=== PATIENT | female | born 1975 | race Caucasian/White ===

== ENCOUNTER 2016-08-22 18:51 | Emergency (ER) | payer BC, OTHER ==
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
[2016-08-22 19:27] LABS: APPEARANCE,URINE SLIGHTLY-CLOUDY; BILIRUBIN,URINE NEGATIVE (NEGATIVE); CALCIUM OXALATE CRYSTALS,URINE FEW /HPF; GLUCOSE, URINE NEGATIVE (NEGATIVE); KETONES,URINE NEGATIVE (NEGATIVE); LEUKOCYTE ESTERASE,URINE NEGATIVE (NEGATIVE); NITRITE,URINE NEGATIVE (NEGATIVE); PROTEIN,URINE 30 mg/dL (NEGATIVE); URINE SPECIFIC GRAVITY 1.013; UROBILINOGEN,URINE NEGATIVE mg/dL (<2.0)
[2016-08-22] MEDS ORDERED: ONDANSETRON HCL INJ/PF 4 MG/2 ML SDV IV ONE (19:49)
[2016-08-22] MEDS ORDERED: MORPHINE SULFATE 10 MG/ML INJ IV ONE (19:49)
[2016-08-22] MEDS ORDERED: HYDROMORPHONE HCL INJ/PF 2 MG/ML AMPULE IV ONE (20:38)
[2016-08-22] MEDS ORDERED: HYDROCODONE/ACETAMINOPHEN 5-325 MG 6 TAB/DSPK PO PRN (20:39)
[2016-08-22 21:32] VITALS: BP 148/82
== END 2016-08-22 21:35 | disposition home or self-care (01) ==
LOC: ER 18:51
PROC: 2W3SX1Z Immobilization of Right Foot using Splint (ICD-10-PCS; principal; 2016-08-22)
DX: S30.1XXA Contusion of abdominal wall, initial encounter (principal); S82.301A Unspecified fracture of lower end of right tibia, initial encounter for closed fracture; R10.9 Unspecified abdominal pain; F17.200 Nicotine dependence, unspecified, uncomplicated; V89.2XXA Person injured in unspecified motor-vehicle accident, traffic, initial encounter
CPT/HCPCS: 99284; 96374; 96375; 81001; 73610; 73110; 74177; 29515; J2270; J1170; J2405

== ENCOUNTER 2016-09-26 10:42 | Emergency (ER) | payer BC ==
--- NOTE | 2016-09-26 11:03 | ER Document Report ---
ED Medical Screen (RME) - General Chief Complaint: Urinary Problem Stated Complaint: BACK PAIN/URINARY ISSUES Time seen by provider: 11:02 Mode of Arrival: Ambulatory Information source: Patient Notes: This is a 41-year-old female with a history of low back surgery in the past ( Dr. Coon with [facility] that is followed by a pain specialist for her back pain. The patient presents with difficulty voiding in the setting of worsening back pain. Patient has had cauda equina in the past and they're concerned about this today. Patient's symptoms of urinary dysfunction started 3 days ago TRAVEL OUTSIDE OF THE [place] IN LAST 30 DAYS: No - Related Data Allergies/Adverse Reactions: No Known Allergies Allergy (Verified 09/26/16 10:44) Past Medical History - Past Medical History Cardiac Medical History: Reports: Hx Hypercholesterolemia, Hx Hypertension Endocrine Medical History: Reports: Hx Diabetes Mellitus Type 2 Renal/ Medical History: Reports: Hx Kidney Stones. Denies: Hx Peritoneal Dialysis Past Surgical History: Reports: Hx Breast Surgery - reduction, Hx Kidney (Renal Surgery) - kidney stones, Hx Oral Surgery - wisdom, Hx Orthopedic Surgery - back - Immunizations Hx Diphtheria, Pertussis, Tetanus Vaccination: No Physical Exam - Vital signs Vitals: Temp Pulse Resp BP Pulse Ox 98.4 F 94 18 112/61 98 09/26/16 10:48 09/26/16 10:48 09/26/16 10:48 09/26/16 10:48 09/26/16 10:48 Course - Vital Signs Vital signs: Temp Pulse Resp BP Pulse Ox 98.4 F 94 18 112/61 98 09/26/16 10:48 09/26/16 10:48 09/26/16 10:48 09/26/16 10:48 09/26/16 10:48
[2016-09-26] MEDS ORDERED: OXYCODONE-ACETAMINOPHEN 5-325 MG TABLET PO ONE (11:09)
[2016-09-26 11:30] LABS: ABSOLUTE BASOPHILS # (AUTO) 0.1 10^3/uL (0.0-0.2); ABSOLUTE LYMPHOCYTES (AUTO) 3.8 10^3/uL (0.5-4.7); ABSOLUTE MONOCYTES (AUTO) 0.7 10^3/uL (0.1-1.4); ABSOLUTE NEUT (AUTO) 6.7 10^3/uL (1.7-8.2); BASOPHILS % (AUTO) 0.7 % (0-2); EOSINOPHILS % (AUTO) 0.2 % (0-6); HEMATOCRIT 38.6 % (36.0-47.0); HEMOGLOBIN 12.7 g/dL (12.0-15.5); HGB HCT DIFFERENCE -0.5; LYMPHOCYTES % (AUTO) 33.8 % (13-45); MEAN CORPUSCULAR HEMOGLOBIN 26.5 pg (27.0-33.4); MEAN CORPUSCULAR VOLUME 80 fl (80-97); MONOCYTES % (AUTO) 6.4 % (3-13); RED BLOOD COUNT 4.81 10^6/uL (3.72-5.28); SEGMENTED NEUTROPHILS % (AUTO) 58.9 % (42-78); WHITE BLOOD COUNT 11.4 10^3/uL (4.0-10.5)
[2016-09-26 11:35] LABS: PROTHROMBIN TIME 13.1 SEC (11.4-15.4)
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
[2016-09-26 12:58] LABS: ALANINE AMINOTRANSFERASE 38 U/L (9-52); ALBUMIN 3.9 g/dL (3.5-5.0); ALKALINE PHOSPHATASE 75 U/L (38-126); ANION GAP 11 (5-19); ASPARTATE AMINO TRANSFERASE 37 U/L (14-36); BILIRUBIN,DIRECT 0.4 mg/dL (0.0-0.4); BILIRUBIN,TOTAL 0.5 mg/dL (0.2-1.3); BLOOD UREA NITROGEN 16 mg/dL (7-20); CALCIUM 10.3 mg/dL (8.4-10.2); CARBON DIOXIDE 25 mmol/L (22-30); CHLORIDE 106 mmol/L (98-107); GLUCOSE 46 mg/dL (75-110); POTASSIUM 5.2 mmol/L (3.6-5.0); SODIUM 142.3 mmol/L (137-145)
[2016-09-26 14:37] LABS: AMORPHOUS SEDIMENT,URINE TRACE /HPF; APPEARANCE,URINE TURBID; BILIRUBIN,URINE NEGATIVE (NEGATIVE); CALCIUM OXALATE CRYSTALS,URINE MANY /HPF; GLUCOSE, URINE NEGATIVE (NEGATIVE); KETONES,URINE NEGATIVE (NEGATIVE); LEUKOCYTE ESTERASE,URINE NEGATIVE (NEGATIVE); NITRITE,URINE NEGATIVE (NEGATIVE); PROTEIN,URINE NEGATIVE (NEGATIVE); URINE SPECIFIC GRAVITY 1.025; UROBILINOGEN,URINE NEGATIVE mg/dL (<2.0)
[2016-09-26 15:46] VITALS: BP 121/67
== END 2016-09-26 15:55 | disposition home or self-care (01) ==
LOC: ER 10:42
DX: M51.36 Other intervertebral disc degeneration, lumbar region (principal); R39.198 Other difficulties with micturition; Z98.890 Other specified postprocedural states; F17.200 Nicotine dependence, unspecified, uncomplicated
CPT/HCPCS: 36415; 51702; 72148; 80053; 81001; 85025; 85610; 99284